=== PATIENT | male | born 1970 | race Caucasian/White ===

== ENCOUNTER 2019-01-06 11:41 | Emergency (ER) | payer MEDICAID, OTHER ==
[~2019-01-06] VITALS: Ht 165.1 cm; Wt 58.0 kg
[2019-01-06 12:01] VITALS: Ht 165.1 cm; Wt 58.0 kg
[2019-01-06] MEDS ORDERED: LIDOCAINE 1% (MPF) 5 ML VIAL INJ ONE (13:00)
[2019-01-06] MEDS ORDERED: CEPH-443 PO (13:52)
--- NOTE | 2019-01-06 14:08 | ERD ---
ER Documentation Chief Complaint Chief Complaint RIGHT MIDDLE FINGER LACERATION; BLEEDING CONTROLLED HPI 48-year-old male presenting with laceration to his right middle finger. Patient states he was installing an air conditioning unit and he cut his finger on the unit. He is right-hand dominant. Last tetanus shot was 6 years ago. He does not have any weakness to the fingers and has full range of motion's. He has not pain medications or clean the area. Denies medical problems. NKDA. Surgical history denies. Social history denies ROS All systems reviewed and are negative except as per history of present illness. Medications Home Meds Active Scripts Cephalexin* (Keflex*) 500 Mg Capsule, 500 MG PO QID for 7 Days, CAP Prov:CHANTEL AKINS PA-C 01/06/19 Allergies Allergies: Coded Allergies: No Known Allergy (Unverified , 01/06/19) PMhx/Soc Medical and Surgical Hx: pt denies Medical Hx, pt denies Surgical Hx Hx Alcohol Use: No Hx Substance Use: No Hx Tobacco Use: No Smoking Status: Never smoker FmHx Family History: No diabetes, No coronary disease, No other Physical Exam Vitals Vital Signs Date Temp Pulse Resp B/P (MAP) Pulse Ox O2 O2 Flow FiO2 Time Delivery Rate 01/06/19 97.5 68 18 148/87 98 12:01 (107) Physical Exam GENERAL: The patient is well-appearing, well-nourished, in no acute distress CHEST: Clear to auscultation bilaterally. There are no rales, wheezes or rhonchi. HEART: Regular rate and rhythm. No murmurs, clicks, rubs or gallops. EXTREMITIES: Equal pulses bilaterally. There is no peripheral clubbing, cyanosis or edema. No focal swelling or erythema. Full range of motion. NEUROLOGIC: Alert and oriented. Cranial nerves II through XII intact. Motor strength in all 4 extremities with 5 out of 5 strength. Sensation grossly intact. SKIN: 1.5 cm linear laceration noted over the right medial your at the PIP fold on the volar aspect. No active bleeding or foreign body noted. Results 24 hrs Current Medications Medications Dose Sig/Marshall Start Time Status Last (Trade) Ordered Route PRN Stop Time Admin Dose Reason Admin Lidocaine 5 ml ONCE ONCE 01/06/19 DC (Xylocaine INJ 13:00 1% (Mpf)) 01/06/19 13:01 Procedures/MDM Laceration Repair by me: Anesthesia: 1% lidocaine locally Location: Right Middle Finger Tendon/Joint/Nerves: No injury Foreign body: None detected after copious irrigation and exploration Technique: 7 4.0 N Simple Interrupted Sutures Complexity: No subcutaneous sutures/mucosal repair/edge excision Post Closure Length: 1.5 cm Patient's bleeding was easily controlled in the department and there is no indic ation of anemia. No evidence of compartment syndrome, neurologic injury, vascular injury, open joint, tendon laceration, or foreign body. Patient is appropriate for outpatient follow up. 48 hour wound check. Scar minimization instructions given. MDM: 48-year-old male presenting with laceration to right middle finger. Patient had sutures placed. I have low suspicion for tendon or ligament rupture as he is able to nicely at the DIP and PIP joint. Has normal flexion and extension against resistance. Neuro intact and has normal cap refill to the right middle distal extremity. Patient will be placed on prophylactic antibiotics. Up-to-date on tetanus and does not require vaccination at this time. Patient was placed in a finger splint to help increase healing with lack of mobility. Finger splint should be removed in 2 days. Patient has had sutures removed within 7 days of today's visit. Patient is discharged with strict ER precautions. All questions answered at discharge Departure Diagnosis: Primary Impression: Laceration Condition: Stable Patient Instructions: Laceration, Hand Referrals: [facility] YOU HAVE RECEIVED A MEDICAL SCREENING EXAM AND THE RESULTS INDICATE THAT YOU DO NOT HAVE A CONDITION THAT REQUIRES URGENT TREATMENT IN THE EMERGENCY DEPARTMENT. FURTHER EVALUATION AND TREATMENT OF YOUR CONDITION CAN WAIT UNTIL YOU ARE SEEN IN YOUR DOCTORS OFFICE WITHIN THE NEXT 1-2 DAYS. IT IS YOUR RESPONSIBILITY TO MAKE AN APPOINTMENT FOR FOLOW-UP CARE. IF YOU HAVE A PRIMARY DOCTOR --you should call your primary doctor and schedule an appointment IF YOU DO NOT HAVE A PRIMARY DOCTOR YOU CAN CALL OUR PHYSICIAN REFERRAL HOTLINE AT IF YOU CAN NOT AFFORD TO SEE A PHYSICIAN YOU CAN CHOSE FROM THE FOLLOWING [facility] [address] [facility] [address] [facility] [facility] [address] [facility] [address] [facility] [address] [facility]. [facility]. [address] Additional Instructions: FOLLOW UP WITH YOUR PRIMARY CARE PHYSICIAN TOMORROW.Return to this facility if you are not improving as expected. CHANTEL AKINS PA-C Jan 06, 2019 14:08
[2019-01-06 14:26] VITALS: BP 132/75; PULSE 92; RESP 18
== END 2019-01-06 14:27 | disposition home or self-care (01) ==
LOC: FTE 11:41
DX: S61.212A Laceration without foreign body of right middle finger without damage to nail, initial encounter (principal); W26.8XXA Contact with other sharp object(s), not elsewhere classified, initial encounter; Y92.9 Unspecified place or not applicable
CPT/HCPCS: 12001; Z7502; Z7610